=== PATIENT | female | born 1965 | race African-American/Black ===

== ENCOUNTER 2018-10-19 00:12 | Inpatient (IN) | payer MEDICAID ==
[~2018-10-19] VITALS: Ht 160 cm; Wt 71.2 kg
[2018-10-19] VITALS (9 sets, daily range): BP systolic 118–154; BP diastolic 63–84
[2018-10-19] MEDS ORDERED: ALBUTEROL (0.083%) 2.5MG/3ML NEB HHN STA (00:52)
[2018-10-19] MEDS ORDERED: PREDNISONE 20MG TABLET PO STA (00:52)
[2018-10-19] MEDS ORDERED: IPRATROPIUM BROMIDE (0.02%) 0.5MG/2.5ML NEB HHN STA (00:52)
[2018-10-19 01:41] LABS: HEMATOCRIT 23.4 % (36.0-48.0); MEAN CORPUSCULAR HEMOGLOBIN 18.1 pg (28.0-32.0); MEAN CORPUSCULAR VOLUME 60.8 fL (81.0-99.0); PLATELET 421 x1000/uL (130-400); RED BLOOD CELL COUNT 3.86 mill/uL (4.2-5.4); RED CELL DISTRIBUTION WIDTH 20.6 % (11.6-14.6)
[2018-10-19 01:45] LABS: CHLORIDE 105 mEq/L (98-107)
[2018-10-19] MEDS ORDERED: ONDANSETRON HCL 4MG/2ML INJ IV PRN (04:30)
[2018-10-19] MEDS ORDERED: MAGNESIUM/ALUMINUM HYDROXIDE/SIMETHICONE 30ML UDC PO PRN (04:30)
[2018-10-19] MEDS ORDERED: CLONIDINE 0.1MG TABLET PO PRN (04:30)
[2018-10-19] MEDS ORDERED: ACETAMINOPHEN 325MG TABLET PO PRN (04:30)
[2018-10-19] MEDS: CEFTRIAXONE 1 G PREMIX 50 ML IV SCH (06:05)
[2018-10-19] MEDS: METHYLPREDNISOLONE SOD SUCC 125 MG/2 ML VIAL IV SCH ×2 (06:05→12:20)
[2018-10-19] MEDS: AZITHROMYCIN 500 MG in DEXT 5% WATER 250 ML IV SCH (06:58)
[2018-10-19] MEDS: IPRATROPIUM/ALBUTEROL 0.5-3(2.5)MG/3ML NEB INH PRN ×2 (09:33→20:15)
[2018-10-19] MEDS: GUAIFENESIN-DM 200MG-20MG/10ML UDC PO PRN ×2 (12:10→20:11)
[2018-10-19] MEDS ORDERED: BENZONATATE 100MG CAPSULE PO PRN (15:15)
[2018-10-20 00:02] VITALS: BP 146/72
[2018-10-20 01:44] LABS: HEMATOCRIT 27.2 % (36.0-48.0); HEMOGLOBIN 8.3 g/dL (12.0-16.0)
[2018-10-20 01:51] LABS: INR 1.1; PROTHROMBIN TIME 10.9 sec (9.1-11.1)
[2018-10-20] MEDS: GUAIFENESIN-DM 200MG-20MG/10ML UDC PO PRN (03:26)
[2018-10-20 04:00] VITALS: BP 139/79
[2018-10-20 05:40] LABS: BASOPHILS % 0.3 % (0.0-2.0); EOSINOPHILS % 0.2 % (0.0-5.0); HEMATOCRIT. 27.1 % (36.0-48.0); LYMPHOCYTES % 15.9 % (20.0-50.0); MEAN CORPUSCULAR HEMOGLOBIN 18.9 pg (28.0-32.0); MEAN CORPUSCULAR VOLUME 63.7 fL (81.0-99.0); MEAN PLATELET VOLUME 9.3 fl (7.4-10.4); MONOCYTES % 9.3 % (2.0-8.0); NEUTROPHILS % 74.3 % (40.0-76.0); PLATELET 465 x1000/uL (130-400); RED BLOOD CELL COUNT 4.25 mill/uL (4.2-5.4); RED CELL DISTRIBUTION WIDTH 23.2 % (11.6-14.6)
[2018-10-20 05:45] LABS: CHLORIDE 106 mEq/L (98-107)
[2018-10-20 05:52] LABS: LDL CHOLESTEROL 35 mg/dL (5-100)
[2018-10-20 05:54] LABS: HDL CHOLESTEROL 68 mg/dL (40-59)
[2018-10-20] MEDS: AZITHROMYCIN 500 MG in DEXT 5% WATER 250 ML IV SCH (06:48)
[2018-10-20 08:00] VITALS: BP 138/64
[2018-10-20 08:01] LABS: PLATELET ESTIMATE INCREASED
[2018-10-20] MEDS ORDERED: PREDNISONE 20MG TABLET PO SCH (09:00)
[2018-10-20] MEDS: CEFTRIAXONE 1 G PREMIX 50 ML IV SCH (10:59)
[2018-10-20 12:00] VITALS: BP 142/72
[2018-10-20 15:31] LABS: BG BASE EXCESS 1.9 mmol/L (-2.0-2.0); BG CARBOXYHEMOGLOBIN 0.2 % (0.5-1.5); BG FRACTION INSPIRED OXYGEN 21; BG HCO3 ACT 26.3 mmol/L (22.0-26.0); BG METHEMOGLOBIN 0.3 % (0.0-1.5); BG OXYHEMOGLOBIN 95.5 % (94.0-97.0); BG PH 7.435 (7.350-7.450); BG PO2 82.2 mmHg (75.0-100.0); BG SAMPLE SITE RIGHT RADIAL; BG TOTAL HEMOGLOBIN 10.2 g/dL (12.0-18.0); BG VENT MODE ROOM AIR
[2018-10-20 16:00] VITALS: BP 138/69
[2018-10-20 18:48] VITALS: BP 138/62
[2018-10-20] MEDS ORDERED: GUAIFENESIN 600MG ER TABLET PO SCH (21:00)
== END 2018-10-20 20:35 | disposition short-term general hospital (02) | DRG 145 ==
LOC: ER 00:12 → 5WST 02:28 → EDBD 02:28 → EDBEDREQ 02:31 → EDBEDREQTM 02:31 → ENRESERV 02:37 → 6WST 10-20 18:09
PROVIDERS: ADMIT Hospitalist; ATTEND Hospitalist
PROC: 30233N1 Transfusion of Nonautologous Red Blood Cells into Peripheral Vein, Percutaneous Approach (ICD-10-PCS; principal; 2018-10-19)
DX: J20.9 Acute bronchitis, unspecified (principal); D64.9 Anemia, unspecified; N92.0 Excessive and frequent menstruation with regular cycle; Z87.891 Personal history of nicotine dependence; Z72.0 Tobacco use
CPT/HCPCS: 36415; 36600; 71045; 80061; 82375; 82805; 83605; 84484; 85014; 85018; 85027; 85049; 85384; 86850; 86900; 86920; 87070; 87804; 93005; 93970; 94640; J0456; J0696; J2930; J7040; J7050; J7060; J7512; J7611; J7620; P9016